=== PATIENT | female | born 1965 | race Two or more races ===

== ENCOUNTER → 2017-09-07 | Outpatient (CLI) | payer OTHER ==
[~2017-09-07] MED LIST: BIOT0.5P MC; LUTE1BEA MC; MULT-245 PO; TENO60PO PO
--- NOTE | 2017-09-07 13:17 | RAD ---
Right upper quadrant abdominal ultrasound, 09/07/2017: History: Hepatitis B The gallbladder is within normal limits in size. There is a small fold or partial septation in the gallbladder neck. The gallbladder noble are not thickened. There is no sonographic evidence of cholelithiasis. The common hepatic duct is of normal caliber. There is no evidence of a hepatic mass. The visualized portions of the pancreas and right kidney are unremarkable. IMPRESSION: No significant abnormality is detected.
== END | disposition home or self-care (01) ==
LOC: US 11:11
PROVIDERS: ATTEND Internal Medicine Gastroenterology
DX: B19.10 Unspecified viral hepatitis B without hepatic coma (principal)
CPT/HCPCS: 76705